=== PATIENT | male | born 1985 | race African-American/Black ===

== ENCOUNTER 2020-02-11 04:35 | Emergency (ER) | payer OTHER ==
[~2020-02-11] VITALS: Ht 180.3 cm; Wt 81.7 kg
--- NOTE | ~2020-02-11 | EMS ---
[facility] [address] [place] [address] EMS Patient Care Report Name: SANTOSH DELACRUZ Room #: PRE M.R.#: [id number] Admission: Attend Phys: Discharge: Date of : 81 Report #: [id number] THIS REPORT FOR: //name// Report Transmitted: 02/11/2020 04:56 EMS Care Summary [place], [place]/[facility] Incident [id number] @ 02/11/2020 04:04 Incident Location [address] [place] [address] Patient SRAVAN DELACRUZ Male, 34 Years 1985 Patient Address Chief Complaint PCP OVERDOSE Disposition Transported No Lights/[place] Reason Overdose/Poisoning/Ingestion Transported To [facility] Narrative M537 RESPONDED EMERGENT TO AN OVERDOSE WITH P36. CALL INITIALLY CAME OUT AN UNKNOWN UPGRADED TO A CPR IN PROGRESS, THEN DOWNGRADED. ON ARRIVAL, CONTACT MADE WITH PT, PT FOUND SITTING UPRIGHT IN THE KITCHEN ON THE FLOOR IN A PUDDLE OF MILK CONSCIOUS BUT NOT ALERT TO PERSON PLACE TIME OR EVENT. PT SELF-MAINTAINING A CLEAR AND PATENT AIRWAY, BREATHING NON-LABORED, RATE DEPTH AND QUALITY ADEQUATE, EBCRF. RADIAL PULSES PRESENT STEADY AND STRONG, SKIN PWD, CAP REFILL UNDER 2 SECONDS. GCS 14. C/C PT SMOKING PCP. PT NOT ABLE TO FOLLOW INSTRUCTIONS OR DIRECTIVES AND WAS REFUSING TO GO TO THE HOSPITAL. PT UNABLE TO PROVIDE ANY OTHER INFORMATION. PT MOVED TO THE COT BY M537 AND P36 . PT PLACED IN A POSITION OF COMFORT AND [facility] [address] [place] [address] EMS Patient Care Report Name: SANTOSH DELACRUZ Room #: PRE [facility].R.#: [id number] Admission: Attend Phys: Discharge: Date of : 81 Report #: [id number] WAS SECURED WITH LOCKING SIDE USING SOFT RESTRAINTS AFTER PT WAS ASSISTED TO THE COT UNDER HIS OWN POWER. PT RESTRAINED WITH CURLEX, SEAT BELTS AND LOCKING SIDE RAILS. PT MOVED TO THE AMBULANCE BY M537 AND P36 AND WAS LOADED WITHOUT INCIDENT. P36 PLACED BACK IN SERVICE. VITALS TAKEN NOTED. TRANSPORT INITIATED TO [facility] ([facility]). RADIO REPORT GIVEN EN ROUTE, PT MONITORED THROUGHOUT TRANSPORT WITHOUT ANY CHANGE IN CONDITION OR PRESENTATION. PT REFUSED OR WAS UNABLE TO PROVIDE ANY HX, MEDS OR ALLERGIES, OR BILLING INFORMATION. ENTIRE TRANSPORT OCCURRED WITHOUT INCIDENT. ON ARRIVAL TO [facility], PT UNLOADED AND TAKEN INTO ED BY M537 WITHOUT INCIDENT. PT TAKEN TO RM 10 DIRECTED BY NURSING STAFF. PT MOVED TO ED BED USING THE SHEET DRAW METHOD WITHOUT INCIDENT. PT PLACED IN A POSITION OF COMFORT AND WAS SECURED WITH LOCKING SIDE RAILS. NURSING STAFF ALSO BEGAN TO GET SOFT RESTRAINTS. CARE TRANSFERRED TO ED STAFF. VERBAL REPORT GIVEN. SIGNATURES OBTAINED, STAFF SIGNED ON BEHALF OF PT DUE TO PT BEING ALTERED AND UNCOOPERATIVE. PT BELONGINGS LEFT IN RM WITH PT. M537 RETURNED TO SERVICE. Initial Vitals @04:21P: 93,R: 16,BP: 122/82,Pain: 0/10,GCS: 14,SpO2: 99,Revised Trauma: 12, @04:31P: 72,R: 16,BP: 136/94,Pain: 0/10,GCS: 14,CO: 5,SpO2: 99,Revised Trauma: 12, Assessments @04:14MENTAL:Combative,Confused,Person Oriented,SKIN:Cold,HEENT:Eyes: Left: Dilated,Eyes: Right: Dilated,Head/Face: No Abnormalities,Neck/Airway: No Abnormalities,LUNG SOUNDS:ABDOMEN:PELVIS//GI:EXTREMITIES:PULSE:NEURO: Impression Overdose - Unspecified Procedures @04:14ALS AssessmentResponse: UnchangedSucceeded@04:18Patient RestraintResponse: UnchangedSucceeded@04:233-Lead ECGResponse: UnchangedSucceeded@04:16StretcherResponse: Unchanged@04:30ALS AssessmentResponse: UnchangedSucceeded Timeline 04:03,Call Received 04:03,Dispatch Notified 04:04,Dispatched 04:06,En Route 04:12,On Scene 04:14,At Patient 04:14,ALS Assessment,Response: UnchangedSucceeded, 04:16,Stretcher,Response: Unchanged 04:18,Patient Restraint,Response: UnchangedSucceeded, [address] [address] EMS Patient Care Report Name: SANTOSH DELACRUZ [id number] Admission: Attend Phys: Discharge: Date of : 81 Report #: [id number] 04:21,BP: 122/82 M,PULSE: 93,RR: 16 R,SPO2: 99 Ox,ETCO2: ,BG: ,PAIN: 0,GCS: 14, 04:23,3-Lead ECG,Response: UnchangedSucceeded, 04:23,Depart Scene 04:30,At Destination 04:30,ALS Assessment,Response: UnchangedSucceeded, 04:31,BP: 136/94 M,PULSE: 72,RR: 16 R,SPO2: 99 Ox,ETCO2: ,BG: ,PAIN: 0,GCS: 14, 04:57,Call Closed Disclaimer v1.1 Copyright 2020 [employer] This EMS Care Summary contains data elements from the applicable legal record (which may be displayed differently). It is designed to provide pertinent information for the following purposes: continuity of care, clinical quality, and state data reporting. The complete legal record is available to ED staff and administrators of the receiving hospital in [facility]'s Patient Tracker. All data is provided "as is."
[2020-02-11 04:37] VITALS: BP 155/95
[2020-02-11 05:42] LABS: HEMATOCRIT 44.7 % (42.0-52.0); HEMOGLOBIN 15.3 gm/dL (14.0-18.0); MCH 33.2 pg (26.0-34.0); MCHC 34.2 g/dL (28.0-37.0); MCV 97.1 fL (80.0-100.0); PLATELET COUNT 186 thou/uL (150-400)
[2020-02-11 05:51] LABS: CALCIUM 8.9 mg/dL (8.5-10.1); CREATININE 1.1 mg/dL (0.7-1.3); POTASSIUM 3.6 mmol/L (3.5-5.1)
[2020-02-11 05:58] LABS: ALBUMIN 4.3 g/dL (3.4-5.0); TOTAL BILIRUBIN 0.5 mg/dL (0.2-1.0); TOTAL PROTEIN 8.2 g/dL (6.4-8.2)
--- NOTE | 2020-02-11 08:07 | EKG ---
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
[2020-02-11 15:12] LABS: ABSOLUTE NEUTROPHILS 6.7 thou/uL (1.4-8.2); ANISOCYTOSIS 1+
== END 2020-02-11 07:25 | disposition home or self-care (01) ==
LOC: ER 04:35
PROVIDERS: Emergency Medicine
DX: R40.20 Unspecified coma (principal); T40.995A Adverse effect of other psychodysleptics [hallucinogens], initial encounter; F19.10 Other psychoactive substance abuse, uncomplicated; Y92.039 Unspecified place in apartment as the place of occurrence of the external cause